=== PATIENT | female | born 1980 | race Caucasian/White ===

== ENCOUNTER 2024-06-06 13:17 | Inpatient (IN) | payer MEDICAID, SELFPAY ==
[2024-06-06 13:18] VITALS: BP 108/76; PULSE 111; RESP 16; TEMP 36.4; O2SAT 100; BMI 29.6
[2024-06-06 14:03] LABS: Absolute Lymphocyte Count 1.97 X10^3/uL (0.83-4.51); Absolute Neutrophil Count 1.4 X10^3/uL (2.0-7.7); Basophil# 0.04 X10^3/uL; Basophil% 1.1 % (0-1); Eosinophil# 0.01 X10^3/uL; Eosinophils% 0.3 % (0-5); Hematocrit 37.8 % (37-47); Hemoglobin 12.6 g/dL (12.0-15.0); Lymphocyte # 1.97 X10^3/ul (0.83-4.51); Lymphocyte % 52.7 % (19-41); Mean Corp Hgb Conc 33.3 g/dL (32-36); Mean Corpuscular Hgb 27.9 pg (27.0-32.0); Mean Corpuscular Volume 83.8 fL (81-99); Mean Platelet Vol. 9.8 fl (6.2-12.0); Monocyte# 0.29 X10^3/uL; Monocyte% 7.8 % (0-10); NRBC Flagged by Analyzer 0 % (0-5); Neutrophil # 1.43 X10^3/uL (2.7-7.7); Neutrophil % 38.1 % (47-70); Platelet Count 357 K/mm3 (150-450); RBC Distribution Width CV 14.2 % (11.6-14.6); RBC Distribution Width SD 43.6 fl (35.1-43.9); Red Blood Count 4.51 M/mm3 (4.2-5.4); White Blood Count 3.7 K/mm3 (4.4-11.0)
[2024-06-06 14:24] LABS: Internal QC Validated? YES +Cl - CLEAR BKGD; Pregnancy, Serum, hCG Quali. NEGATIVE Negative
[2024-06-06 14:30] LABS: Amphetamine Urine NEGATIVE (<1000 ng/mL); Barbiturate Urine NEGATIVE (< 200 ng/mL); Benzodiazepine Urine NEGATIVE (< 200 ng/mL); Buprenorphine Urine NEGATIVE (< 200 ng/mL); Cocaine Urine NEGATIVE (< 300 ng/mL); Fentanyl, Urine NEGATIVE; Methadone Urine NEGATIVE (< 300 ng/mL); Opiates Urine NEGATIVE (< 300 ng/mL); Oxycodone, Urine NEGATIVE (< 100 ng/mL); PCP Urine NEGATIVE (< 25 ng/mL); THC Urine NEGATIVE (< 50 ng/mL)
[2024-06-06 14:39] LABS: ALB/GLOB Ratio 1.3 RATIO (0.9-2.4); AST(SGOT) 114 U/L (<=31); Alanine Aminotransfer ALT/SGPT 129 U/L (<=34); Albumin, Serum 4.4 g/dL (3.5-5.0); Alkaline Phosphatase 69 U/L (35-104); Anion Gap 18 (5-15); BUN 11 mg/dL (4-19); BUN/Creat Ratio 13.7 RATIO (10-20); Calcium,Total 8.6 mg/dL (7.6-11.0); Carbon Dioxide 19.7 mmol/L (21.0-32.0); Chloride 103 mmol/L (98-108); Creatinine, Serum 0.77 mg/dL (0.70-1.20); EST Glomerular Filtration Rate 100 (>60); Estimated Creatinine Clearance 104.54 ml/min (50-250); Globulin 3.4 g/dL (2.2-4.2); Glucose 111 mg/dL (70-99); Potassium 3.9 mmol/L (3.3-5.1); Protein, Total 7.7 g/dL (5.9-8.4); Sodium Level 141 mmol/L (133-145); Total Bilirubin 0.25 mg/dL (0.00-1.30)
--- NOTE | 2024-06-06 14:51 | EX.ED.DYSGE1 ---
HPI History of Present Illness Chief Complaint: Substance Abuse Narrative Narrative: Chief complaint and HPI: Requesting detox. 43-year-old female with past medical history of previous substance and alcohol abuse presents for evaluation for alcohol detox. Patient has had detox in the past for her alcohol abuse. She denies any seizures from withdrawal. Patient relapsed on her alcohol about a year ago. She denies any drug abuse for a year. Used to use methamphetamines and heroin. Patient states that she would like to reenter into detox. Her last drink was a couple hours prior to arrival. She has about 4-5 drinks a day. She currently denies any withdrawal symptoms such as anxiety, nausea, vomiting. Review of systems: See HPI Medications: As listed on the chart Allergies: As listed on the chart PFSH: Per chart Vital signs: As listed on the chart. Reviewed. Physical exam: Gen: A&O x3 Head: Normocephalic, atraumatic Eyes: No sclera icterus, conjunctiva clear, PERRL, EOMI ENT: Mildly dry mucous membranes CV: Tachycardic, regular rhythm, no murmurs Resp: Lungs CTA BL, no w/r/c GI: Abd soft, non-distended, non-tender, no r/r/g Musc: Full ROM, no deformity Skin: Warm, dry Neuro: Alert, oriented, grossly intact, sensation intact Psych: Cooperative, intermittently tearful [facility] Medical History ETOH abuse Home Medications ?Medication ?Instructions ?Recorded ?Last Taken ?Type NK 06/06/24 Unknown History Allergy/AdvReac Type Severity Reaction Status Date / Time Penicillins Allergy Mild RASH Verified 06/06/24 13:20 Social History Smoking Status: Unknown if ever smoked EXAM Physical Exam Const Vital Signs: 06/06/24 13:18 Temperature 97.6 F L Temperature Source Temporal Pulse Rate 111 H Respiratory Rate 16 Blood Pressure 108/76 Blood Pressure Mean 86 Pulse Ox 100 Oxygen Delivery Method Room Air MDM MDM MDM Narrative Medical decision making narrative: 43-year-old female with past medical history of previous substance and alcohol abuse presents for evaluation for alcohol detox. Differential diagnosis includes alcohol abuse, substance abuse, dehydration, electrolyte abnormality. NS bolus, folic acid, thiamine ordered. Basic labs ordered with urine drug screen. CBC with leukopenia of 3.7. No anemia. CMP with metabolic anion gap likely secondary to dehydration and alcoholic ketosis. No LANCE. Patient has transaminitis likely secondary to her alcohol abuse not having abdominal pain. Serum negative. He urine drug screen negative. Alcohol level 290. Patient will require admission for detox. Admitted via the hospitalist. She confirmed understanding of the plan. Impression: 1. Alcohol abuse 2. Metabolic acidosis likely secondary to diabetic ketosis and dehydration 3. Alcohol intoxication 4. Transaminitis Lab Data Labs: Laboratory Results - last 24 hr 06/06/24 13:55 WBC 3.7 L RBC 4.51 Hgb 12.6 Hct 37.8 MCV 83.8 MCH 27.9 MCHC 33.3 RDW Std Deviation 43.6 RDW Coeff of Ivan 14.2 Plt Count 357 MPV 9.8 Immature Gran % (Auto) 0.000 Neut % (Auto) 38.1 L Lymph % (Auto) 52.7 H Villalba % (Auto) 7.8 Eos % (Auto) 0.3 Baso % (Auto) 1.1 H Absolute Neuts (auto) 1.4 L Absolute Lymphs (auto) 1.97 Nucleated RBC % 0 Sodium 141 Potassium 3.9 Chloride 103 Carbon Dioxide 19.7 L Anion Gap 18 H BUN 11 Creatinine 0.77 Estim Creat Clear Calc 104.54 Est GFR (MDRD) Non-Af 100 BUN/Creatinine Ratio 13.7 Glucose 111 H Calcium 8.6 Total Bilirubin 0.25 AST 114 H ALT 129 H Alkaline Phosphatase 69 Total Protein 7.7 Albumin 4.4 Globulin 3.4 Albumin/Globulin Ratio 1.3 Serum , Qual NEGATIVE Urine Opiates Screen NEGATIVE U Buprenorphine Qual NEGATIVE Ur Oxycodone Screen NEGATIVE Urine Methadone Screen NEGATIVE Urine Fentanyl Screen NEGATIVE Ur Barbiturates Screen NEGATIVE Ur Phencyclidine Scrn NEGATIVE Ur Amphetamines Screen NEGATIVE U Benzodiazepines Scrn NEGATIVE Urine Cocaine Screen NEGATIVE U Cannabinoids Screen NEGATIVE Ethyl Alcohol 290.0 H Discharge Plan Triage Chief Complaint: Substance Abuse ED Provider: Yaron Manriquez Dx/Rx/DC Orders Primary Care Provider: Care Physician,Hedy Primary Referrals: Care Physician,No Primary [Primary Care Provider] - Print Language: Trinidadian
--- NOTE | 2024-06-06 14:57 | PCM.HP.STD ---
HPI - General General Date of Admission: 06/06/24 HPI Narrative EDVIN KANG, is a 43 F who presents to the hospital requesting detox from alcohol. Her last drink was today. She has had a history of IV drug abuse in the past but nothing recently. Her last IV drug use was about a year ago and then she has only been drinking since then. Since her last IV drug use she has tested positive for hepatitis C but is negative for HIV. [facility] Medical History ETOH abuse Home Medications ?Medication ?Instructions ?Recorded ?Last Taken ?Type NK 06/06/24 Unknown History Allergy/AdvReac Type Severity Reaction Status Date / Time Penicillins Allergy Mild RASH Verified 06/06/24 13:20 Family History (Updated 06/06/24 @ 16:[address] Noam Diaz MD) Other Cancer Diabetes no surgical history Social History Smoking Status: Unknown if ever smoked ROS Constitutional Constitutional: Denies chills, fatigue, fever(s) or malaise Eyes Eyes: Denies blurry vision ENT HEENT: Denies headache(s) or nasal discharge Cardiovascular Cardiovascular: Denies chest pain, dyspnea on exertion or syncope Respiratory/Chest Respiratory/Chest: Denies cough, shortness of breath at rest or shortness of breath with exertion Gastrointestinal Gastrointestinal: Denies constipation, diarrhea, nausea or vomiting Genitourinary Genitourinary: Denies dysuria Neurologic Neurologic: Denies focal weakness, numbness or tremor(s) Psychiatric Psychiatric: Denies anxiety or depression Vital Signs Vital Signs Vital Signs: 06/06/24 13:18 Temperature 97.6 F L Temperature Source Temporal Pulse Rate 111 H Respiratory Rate 16 Blood Pressure 108/76 Blood Pressure Mean 86 Pulse Ox 100 Oxygen Delivery Method Room Air Weight Weight: 183 lb 8 oz Body Mass Index (BMI) 29.6 Physical Exam Narrative General: Alert, Oriented x3, Cooperative, No apparent distress HEENT: Atraumatic, PERRLA, EOMI, Normocephalic Oral: Moist Mucosa Neck: Supple, No JVD Lungs: Clear to auscultation, Normal air movement, No rhonchi, No wheeze, No rales Cardiovascular: Regular rate, Regular Rhythm, Normal S1, Normal S2, No murmurs Abdomen: Soft, Non Tender, Non-Distended, No Hepato-splenomegaly Extremities: No edema, Capillary Refill Less than 3 Seconds Skin: No rashes, No breakdown Musculoskeletal: No Tenderness to Palpation of Joints or Extremities Neurological: No focal neurological deficits, Motor Exam 5/5 strength throughout, Sensory exam intact to light touch and pain Psych/Mental Status: Normal Affect, Appropriate Results Lab / Micro Data 06/06/24 13:55 06/06/24 13:55 Labs: Laboratory Results - last 24 hr 06/06/24 13:55: WBC 3.7 L, RBC 4.51, Hgb 12.6, Hct 37.8, MCV 83.8, MCH 27.9, MCHC 33.3, RDW Std Deviation 43.6, RDW Coeff of Ivan 14.2, Plt Count 357, MPV 9.8, Immature Gran % (Auto) 0.000, Neut % (Auto) 38.1 L, Lymph % (Auto) 52.7 H, [place] % (Auto) 7.8, Eos % (Auto) 0.3, Baso % (Auto) 1.1 H, Absolute Neuts (auto) 1.4 L, Absolute Lymphs (auto) 1.97, Nucleated RBC % 0, Sodium 141, Potassium 3.9, Chloride 103, Carbon Dioxide 19.7 L, Anion Gap 18 H, BUN 11, Creatinine 0.77, Estim Creat Clear Calc 104.54, Est GFR (MDRD) Non-Af 100, BUN/Creatinine Ratio 13.7, Glucose 111 H, Calcium 8.6, Total Bilirubin 0.25, AST 114 H, ALT 129 H, Alkaline Phosphatase 69, Total Protein 7.7, Albumin 4.4, Globulin 3.4, Albumin/Globulin Ratio 1.3, Serum , Qual NEGATIVE, Urine Opiates Screen NEGATIVE, U Buprenorphine Qual NEGATIVE, Ur Oxycodone Screen NEGATIVE, Urine Methadone Screen NEGATIVE, Urine Fentanyl Screen NEGATIVE, Ur Barbiturates Screen NEGATIVE, Ur Phencyclidine Scrn NEGATIVE, Ur Amphetamines Screen NEGATIVE, U Benzodiazepines Scrn NEGATIVE, Urine Cocaine Screen NEGATIVE, U Cannabinoids Screen NEGATIVE, Ethyl Alcohol 290.0 H Assessment & Plan Assessment/Plan (1) ETOH abuse: PLAN: Plan 1. Alcohol abuse requesting detox/elevated LFTs/hepatitis C ? Continue with the alcohol withdrawal protocol ? Will have her follow-up with 180 to develop an outpatient discharge plan ? On admission to the ER her CIWA score was 0 but her blood alcohol is 290 ? LFTs are elevated secondary to her alcohol use and her chronic hepatitis C, will follow-up as an outpatient DVT: Ambulation 60 minutes was spent on direct patient care, including documentation as well as chart review and collaboration with colleagues Charges/Coding Visit Charges Inpatient E&M: 09578 Init Hosp L2
[2024-06-06 15:09] VITALS: BP 143/93; PULSE 108; RESP 18; TEMP 36.4; O2SAT 96
[2024-06-06] MEDS: 0.9% Normal Saline (1000mL) 1,000 ML 999 ML IV (15:10)
--- NOTE | 2024-06-06 15:15 | ED.RN ---
pt physically and verbally anxious about taking off clothes. has gown on but still has bottoms on.
[2024-06-06] MEDS: Folic Acid 1 MG in 0.9% Normal Saline (50mL Bag) 50 ML 200 MG IV (15:38)
[2024-06-06] MEDS: Thiamine Hydrochloride 100 MG in 0.9% Normal Saline (50mL Bag) 50 ML 200 MG IV (15:38)
[2024-06-06] MEDS: Gabapentin 300 MG Capsule PO (17:37)
[2024-06-06] MEDS: Phenobarbital 32.4 MG Tablet 64.8 MG PO ×2 (17:37→21:42)
[2024-06-06 17:39] VITALS: BMI 28.4
[2024-06-06 17:49] VITALS: BP 142/94; PULSE 105; RESP 16; TEMP 36.7; O2SAT 97
[2024-06-06] MEDS: hydrOXYzine PAM 25 MG Capsule 50 MG PO (18:43)
[2024-06-06 20:22] VITALS: BP 149/96; PULSE 110; RESP 17; TEMP 36.8; O2SAT 100
[2024-06-06] MEDS: Lorazepam 2 MG/ML WCH Syringe 0.5 MG IV (21:43)
[2024-06-06] MEDS: 0.9% Saline Lock 10 ML Syringe IV (21:44)
[2024-06-06 21:48] VITALS: BP 135/95; PULSE 100; RESP 17; TEMP 36.6; O2SAT 98
[2024-06-07] VITALS (7 sets, daily range): BP systolic 119–146; BP diastolic 78–99; PULSE 87–106; RESP 14–18; TEMP 36.4–37; O2SAT 98–99
[2024-06-07] MEDS: Phenobarbital 32.4 MG Tablet 64.8 MG PO ×6 (01:38→22:49)
[2024-06-07] MEDS: Gabapentin 300 MG Capsule PO ×3 (01:43→18:01)
--- NOTE | 2024-06-07 08:16 | PN.HOSP_ITS ---
Subjective Subjective Doing well, no issues overnight. Resting comfortably, CIWA score of 1 Objective Data Objective Data Vital Signs: Vital Signs Temp Pulse Resp BP Pulse Ox O2 Del Method 97.8 F 88 15 119/78 98 Room Air 06/07/24 05:43 06/07/24 05:43 06/07/24 05:43 06/07/24 05:43 06/07/24 05:43 06/07/24 05:43 Oxygen Delivery Method Room Air Weight: 176 lb 5.917 oz Body Mass Index (BMI) 28.4 Intake & Output: Intake and Output for Last 24 Hours 06/06/24 06/07/24 06/08/24 03:59 03:59 03:59 Intake Total 2501.2 / 2501.2 500 / 500 Balance 2501.2 / 2501.2 500 / 500 Lab / Micro Data 06/06/24 13:55 06/06/24 13:55 Labs: Laboratory Results - last 24 hr 06/06/24 13:55: WBC 3.7 L, RBC 4.51, Hgb 12.6, Hct 37.8, MCV 83.8, MCH 27.9, MCHC 33.3, RDW Std Deviation 43.6, RDW Coeff of Ivan 14.2, Plt Count 357, MPV 9.8, Immature Gran % (Auto) 0.000, Neut % (Auto) 38.1 L, Lymph % (Auto) 52.7 H, [place] % (Auto) 7.8, Eos % (Auto) 0.3, Baso % (Auto) 1.1 H, Absolute Neuts (auto) 1.4 L, Absolute Lymphs (auto) 1.97, Nucleated RBC % 0, Sodium 141, Potassium 3.9, Chloride 103, Carbon Dioxide 19.7 L, Anion Gap 18 H, BUN 11, Creatinine 0.77, Estim Creat Clear Calc 104.54, Est GFR (MDRD) Non-Af 100, BUN/Creatinine Ratio 13.7, Glucose 111 H, Calcium 8.6, Total Bilirubin 0.25, AST 114 H, ALT 129 H, Alkaline Phosphatase 69, Total Protein 7.7, Albumin 4.4, Globulin 3.4, Albumin/Globulin Ratio 1.3, Serum , Qual NEGATIVE, Urine Opiates Screen NEGATIVE, U Buprenorphine Qual NEGATIVE, Ur Oxycodone Screen NEGATIVE, Urine Methadone Screen NEGATIVE, Urine Fentanyl Screen NEGATIVE, Ur Barbiturates Screen NEGATIVE, Ur Phencyclidine Scrn NEGATIVE, Ur Amphetamines Screen NEGATIVE, U Benzodiazepines Scrn NEGATIVE, Urine Cocaine Screen NEGATIVE, U Cannabinoids Screen NEGATIVE, Ethyl Alcohol 290.0 H Physical Exam Narrative General: Alert, Oriented x3, Cooperative, No apparent distress HEENT: Atraumatic, PERRLA, EOMI, Normocephalic Oral: Moist Mucosa Neck: Supple, No JVD Lungs: Clear to auscultation, Normal air movement, No rhonchi, No wheeze, No rales Cardiovascular: Regular rate, Regular Rhythm, Normal S1, Normal S2, No murmurs Abdomen: Soft, Non Tender, Non-Distended, No Hepato-splenomegaly Extremities: No edema, Capillary Refill Less than 3 Seconds Skin: No rashes, No breakdown Musculoskeletal: No Tenderness to Palpation of Joints or Extremities Neurological: No focal neurological deficits, Motor Exam 5/5 strength throughout, Sensory exam intact to light touch and pain Psych/Mental Status: Normal Affect, Appropriate, a little anxious Assessment & Plan Assessment/Plan (1) ETOH abuse: PLAN: Plan 1. Alcohol abuse requesting detox/elevated LFTs/hepatitis C ? Continue with the alcohol withdrawal protocol ? Will have her follow-up with 180 to develop an outpatient discharge plan ? On admission to the ER her CIWA score was 0 but her blood alcohol is 290 ? LFTs are elevated secondary to her alcohol use and her chronic hepatitis C, will follow-up as an outpatient DVT: Ambulation Charges/Coding Visit Charges Inpatient E&M: 05116 Subs Hosp L1
[2024-06-07] MEDS: Thiamine Hydrochloride 100 MG Tablet PO (09:39)
[2024-06-07] MEDS: Folic Acid 1 MG Tablet PO (09:39)
[2024-06-07] MEDS: LORazepam 1 MG Tablet PO ×2 (13:40→22:57)
--- NOTE | 2024-06-07 15:12 | ADDICTION ---
Pt was met with to complete the RAMP assessment, AUDIT, DUDIT, ASAM, MSE, and DC Plan. Pt reports no desire to enter into residential tx, despite evidence of significant impairments to fx and limited ability to meet her most basic needs d/t LUCILA and MH. Pt was provided options for residential and outpatient tx and challenged on her resistance to entering residential. Pt agreed to continue thinking about entering a residential placement but she was not willing to commit at this time. A referral to [facility] was completed for residential tx. Admissions counseling case manager Ingrid, from [facility], will call on Sunday to screen pt and pt can make a decision about residential at that time. Pt reiterated a desire to return 'home' multiple times, stating that her home is a homeless custodial in [place] called [facility]. Pt states that she is pretty sure I just want to go home and get a job and her Grandmother and Aunt plan to pick her up from [facility] detox on Sunday. If pt decided to d/c home, pt can continue following up with [facility] in [place] where she was previously receiving LUCILA and MH tx.
[2024-06-08] MEDS: Phenobarbital 32.4 MG Tablet 64.8 MG PO ×6 (02:26→21:21)
[2024-06-08 06:14] VITALS: BP 135/85; PULSE 87; RESP 16; TEMP 36.2; O2SAT 97
--- NOTE | 2024-06-08 07:52 | PCM.PN.HOSP ---
Reason for Visit Reason for Visit: Diagnoses Alcohol abuse, uncomplicated (06/06/24) Subjective Subjective Feeling unwell. Objective Data Objective Data Vital Signs: Vital Signs Temp Pulse Resp BP Pulse Ox O2 Del Method 36.2 C L 87 16 135/85 H 97 Room Air 06/08/24 06:14 06/08/24 06:14 06/08/24 06:14 06/08/24 06:14 06/08/24 06:14 06/08/24 06:14 Oxygen Delivery Method Room Air Weight: 80 kg Body Mass Index (BMI) 28.4 Intake & Output: Intake and Output for Last 24 Hours 06/06/24 06/07/24 06/08/24 23:59 23:59 23:59 Intake Total 2501.2 / 2501.2 500 / 700 350 / 350 Balance 2501.2 / 2501.2 500 / 700 350 / 350 Lab / Micro Data 06/06/24 13:55 06/06/24 13:55 Physical Exam Const alert and no apparent distress HEENT head/scalp atraumatic and moist oral mucous membranes Assessment & Plan Assessment/Plan (1) Alcohol withdrawal: PLAN: on Phenobarbital taper thiamine and folate. Patient's plan to return home (a homeless group home in [place]). Family to pick her up on 06/09 Charges/Coding Visit Charges Inpatient E&M: 70767 Subs Hosp L1
[2024-06-08 08:42] VITALS: BP 143/89; PULSE 78; RESP 16; TEMP 36.4; O2SAT 99
[2024-06-08] MEDS: Folic Acid 1 MG Tablet PO (09:43)
[2024-06-08] MEDS: Thiamine Hydrochloride 100 MG Tablet PO (09:43)
[2024-06-08] MEDS: LORazepam 1 MG Tablet PO (14:15)
[2024-06-08 14:19] VITALS: BP 147/92; PULSE 94; RESP 16; TEMP 36.9; O2SAT 97
[2024-06-08] MEDS: Ibuprofen 600 MG Tablet PO (17:08)
[2024-06-08 21:24] VITALS: BP 119/77; PULSE 78; RESP 16; TEMP 36.7; O2SAT 98
[2024-06-09] MEDS: Phenobarbital 32.4 MG Tablet 64.8 MG PO ×2 (03:11→08:00)
[2024-06-09 03:17] VITALS: BP 121/74; PULSE 81; RESP 16; TEMP 36.6; O2SAT 97
[2024-06-09] MEDS: Folic Acid 1 MG Tablet PO (08:01)
[2024-06-09] MEDS: Thiamine Hydrochloride 100 MG Tablet PO (08:01)
[2024-06-09] MEDS: Ibuprofen 600 MG Tablet PO (08:03)
[2024-06-09 08:05] VITALS: BP 118/67; PULSE 86; RESP 16; TEMP 36.6; O2SAT 98
--- NOTE | 2024-06-09 10:41 | DCINST_ITS ---
Discharge Instructions Diet Discharge Diet: No restrictions DC O2, CPAP, BIPAP needs Home O2 Discharge instructions: No Dressing / Incision Discharge Activity: Return to Normal Activity Weight Bearing Status: Weight bearing as tolerated Dressing / Incision Call your doctor if you observe: Fever of 101 or Higher, Coldness, Increased Pain, Numbness or Tingling, Change in Color, Inability to urinate, Inability to have a bowel movement, Using more than 1 pad per hour, Shortness of breath, Dizziness, Fainting spells, Swelling in the ankles, Chest pain, Prolonged hiccupping, Increased palpitations (irregular heartbeat) and Calf discomfort Follow Up Care When: IN 2 WEEKS Test Results: Test results from this visit will be discussed in further detail at your follow- up appointment, if applicable. Discharge Plan Admission Admit Date/Time: 06/06/24 14:54 Attending Provider: Yuri Ocasio Primary Care Provider: Care Physician,No Primary Consulting Providers: Noam Diaz Eric Discharge Orders/Prescriptions Prescriptions: New thiamine HCl (vitamin B1) 100 mg Tablet 100 mg PO DAILYCM 30 Days Qty: 30 2RF folic acid 1 mg Tablet 1 mg PO DAILY@0800 30 Days Qty: 30 3RF No Action NK Referrals / Follow Up: Care Physician,No Primary [Primary Care Provider] - Disposition Disposition (needs filled in before D/C Order can be placed): Home, Self Care
--- NOTE | 2024-06-09 11:43 | PCM.DC.SUM ---
Providers Date of Admission: 06/06/24 Date of Discharge: 06/09/24 Primary Care Physician: No Primary Care Phys Reason For Visit: ETOH Diagnosis Discharge Diagnosis (1) Alcohol withdrawal: Status: Acute Code(s): F10.939 - Alcohol use, unspecified with withdrawal, unspecified Plan 43-year-old female was admitted to help her with alcohol withdrawal syndrome. She relapsed on alcohol about a year ago. Denies substance use. Usually drinks 5-6 drinks tall boys, beer per day. She was admitted with anxiety, restlessness, hot and cold flashes and diffuse bodyaches 1. Acute alcohol withdrawal syndrome with history of chronic alcohol use disorder with dependence and tolerance: Patient is being admitted to MedSurg floor. Patient on phenobarbital based order set along with other adjunctive medications gabapentin, Bentyl, Vistaril, clonidine, Klonopin as needed for alcohol withdrawal symptom control. Patient is on thiamine and folate acid. CIWA monitor. associate manager affiliate marketing 180 consulted. Patient is being discharged to home from where she will go to inpatient alcohol rehab. Discharge medication reconciliation done. Discharge follow-up instructions completed. Discharge process discussed with the patient and all questions were answered to patient's satisfaction. Follow with PCP in 1 to 2 weeks Total time spent, exact 35 minutes on discharge meds reconciliation, examination, coordination of care with nurses and ancillary staff, review of imaging and blood test and discussion with the patient on follow-up instructions. Medications at Discharge Home Medications NK 06/06/24 folic acid 1 mg tablet 1 mg PO DAILY@0800 30 days #30 tabs 06/09/24 thiamine HCl (vitamin B1) 100 mg tablet 100 mg PO DAILYCM 30 days #30 tabs 06/09/24 Physical Exam Narrative Seen and examined Denies chronic liver disease, jaundice or upper GI bleed. Denies substance use or needle use. Physical exam General: Alert, Oriented x3, Cooperative. BMI 28.5 kg/m? HEENT: Atraumatic, PERRLA, EOMI, Normocephalic Oral: No Gingival or Mucosal Lesions/ Ulcerations Neck: Supple, No JVD, Negative Carotid Bruits Chest wall/Lungs: Air entry equal in bilateral lung bases. No crepitation/rhonchi Cardiovascular: Regular rate, Regular Rhythm, Normal S1, Normal S2, No M/G/R Abdomen: Bowel Sounds Present, Soft, Non Tender, Non-Distended : No dysuria. No renal angle tenderness. No suprapubic tenderness. Extremities: No edema, Capillary Refill Less than 3 Seconds Skin: No rashes, No breakdown Musculoskeletal: No Tenderness to Palpation of Joints or Extremities Neurological: Cranial nerves II-XII grossly intact, DTR 2+/4. No acute focal neurological deficit. Psych/Mental Status: Normal Affect, Appropriate. Weight / BMI Weight Weight: 176 lb 5.917 oz Body Mass Index (BMI) 28.4 ABG / Lab / Microbiology Data 06/06/24 13:55 06/06/24 13:55 D/C Instructions Discharge Diet: No restrictions Weight Bearing Status: Weight bearing as tolerated Call your doctor if you observe: Fever of 101 or Higher, Coldness, Increased Pain, Numbness or Tingling, Change in Color, Inability to urinate, Inability to have a bowel movement, Using more than 1 pad per hour, Shortness of breath, Dizziness, Fainting spells, Swelling in the ankles, Chest pain, Prolonged hiccupping, Increased palpitations (irregular heartbeat) and Calf discomfort DC O2, CPAP, BIPAP Needs Home O2 Discharge instructions: No When: IN 2 WEEKS Meaningful Use Info Meaningful Use Meaningful Use Diagnoses (Choose all that apply): None applicable Ischemic Stroke Statin Dosing Therapy Reference: STATIN DOSE THERAPY REFERENCE: * Patients > 75 years receive moderate or high dose statin therapy. * Patients 75 years or YOUNGER should receive HIGH intensity statin dose unless contraindicated. You will be required to document reason for non-treatment if statin daily dose does not meet guidelines. HIGH DOSE STATIN THERAPY DAILY Atorvastatin > than or = to 40 mg Rosuvastatin > than or = to 20 mg Amlodipine + Atorvastatin > than or = to 2.5/40 mg Ezetimibe + Simvastatin 10/80 mg Simvastatin 80mg Discharge Plan Admission Admit Date/Time: 06/06/24 14:54 Attending Provider: Yuri Ocasio Primary Care Provider: Care Physician,No Primary Consulting Providers: Noam Diaz Eric Discharge Orders/Prescriptions Prescriptions: New thiamine HCl (vitamin B1) 100 mg Tablet 100 mg PO DAILYCM 30 Days Qty: 30 2RF folic acid 1 mg Tablet 1 mg PO DAILY@0800 30 Days Qty: 30 3RF No Action NK Referrals / Follow Up: Care Physician,No Primary [Primary Care Provider] - Disposition Disposition (needs filled in before D/C Order can be placed): Home, Self Care Charges/Coding Visit Charges Inpatient E&M: 21243 Disch Hosp >30min
--- NOTE | 2024-06-09 12:05 | CHAPLAIN ---
Type of Pastoral Visit _x__ Initial Visit ___ Follow-up Visit ___ On-call Visit ___ General Patient Visit ___ Spiritual Assessment ___ Family Conference ___ Bereavement ___ Rapid Response ___ Code Blue ___ Other (describe below) Pastoral Care Referral From _x__ Patient ___ Family ___ Nurse ___ Physician ___ Perioperative Educator ___ Gas Treater ___ Other (describe below) Sacrament/Intervention _x__ Active listening ___ Anointing ___ Cheondoism ___ Bereavement ___ Communion _x__ Karen exploration ___ _x__ Life review _x__ Prayer ___ Reconciliation ___ Sacrament of Sick _x__ Supportive presence ___ Wedding ___ Other (describe below) Pastoral Comments patient made specific request for the neurosurgery physician to see her this morning before she is probably to be discharged; pt becomes tearful immediately as support is offered; pt speaks of her drinking binge that was brought on by her boyfriend who encouraged it and has distanced himself from her of late; pt speaks of being 'hurt' by this man's actions when he knows that I can't stop drinking when I get started; pt is unsure about what is next for herself although she has been given a list of treatment places; pt speaks of her almendarez with drugs and alcohol but I've been clean for almost a year; pt admits to carrying weight of guilt and shame; pt has an 18 year old son that rarely has time for me; pt states that she is just lost and don't know what to do; pt is asked about her karen and if that is helpful to her; pt acknowledges that she prays every day but stops when she starts to drink, and feels like then she is not able to pray; pt welcomes affirmation of her feelings, prayer support, and encouragement to continue in treatment for maximum opportunity for wellness and hope;
--- NOTE | 2024-06-09 14:18 | PHA.DC_ITS ---
Pharmacy [place] Med Reconciliation Pharmacy Service has performed discharge medication reconciliation for this patient. Unable to consumer credit counselor prior to discharge, medications reviewed. The patient's discharge medication list was reviewed for discrepancies and discrepancies were resolved. Medications at Discharge Home Medications NK 06/06/24 folic acid 1 mg tablet 1 mg PO DAILY@0800 30 days #30 tabs 06/09/24 thiamine HCl (vitamin B1) 100 mg tablet 100 mg PO DAILYCM 30 days #30 tabs 06/09/24
== END 2024-06-09 12:00 | disposition home or self-care (01) | DRG 775 ==
LOC: ED 14:04 → MS3 16:02
PROVIDERS: Admitting Provider Family Medicine; Emergency Provider Surgery; Referring Provider Family Medicine; Visit Provider Internal Medicine
DX: F10.139 Alcohol abuse with withdrawal, unspecified (principal); E87.20 Acidosis, unspecified; B18.2 Chronic viral hepatitis C; Z59.01 Sheltered homelessness; R74.01 Elevation of levels of liver transaminase levels; Y90.8 Blood alcohol level of 240 mg/100 ml or more
CPT/HCPCS: 80053; 80307; 82077; 84703; 85025; 97802; 99284; A4216

== ENCOUNTER → 2024-07-03 | Outpatient (CLI) | payer MEDICAID, SELFPAY | END | disposition home or self-care (01) | LOC: LABSPEC 14:28 | PROVIDERS: Visit Provider Nurse Practitioner Family | DX: Z01.419 Encounter for gynecological examination (general) (routine) without abnormal findings (principal) | CPT/HCPCS: 88175; G0145 ==